=== PATIENT | male | born 1935 | race Caucasian/White ===

== ENCOUNTER 2019-02-27 22:31 | Emergency (ER) | payer OTHER ==
[2019-02-27 22:39] VITALS: BP 143/60; PULSE 70; TEMP 99.2; BMI 24.3
[2019-02-27] MEDS ORDERED: SODIUM CHLORIDE 1,000 ML IV ONE (22:43)
[2019-02-27 23:01] LABS: BASO % 0.1 % (0-2.0); HEMOGLOBIN 13.4 GM/dl (11.7-16.9)
[2019-02-27 23:04] LABS: EOS % 0.1 % (0-4.5); LYMPH % 5.9 % (8-40); MCH 31.9 pg (25.7-33.7); MCHC 33.5 g/dl (32.0-35.9); MEAN PLT VOLUME 7.9 fl (7.5-11.1); MONO % 7.6 % (3.8-10.2); NEUT % 86.3 % (42.8-82.8); PLATELET COUNT 181 K/MM3 (134-434); RBC 4.21 M/mm3 (4.00-5.60); RDW 12.4 % (11.9-15.9); WHITE BLOOD COUNT 9.3 K/mm3 (4.0-10.8)
[2019-02-27 23:19] LABS: ALBUMIN 3.3 g/dl (3.4-5.0); BILIRUBIN,TOTAL 0.8 mg/dl (0.2-1); CALCIUM 8.5 mg/dl (8.5-10); TOT PROT 6.1 g/dl (6.4-8.2)
--- NOTE | 2019-02-27 23:22 | PDOC ---
Documentation entered by Jeremiah Scales SCRIBE, acting as scribe for Salvador Hess MD. Salvador Hess MD: This documentation has been prepared by the Yordy bueno Andrys, SCRIBE, under my direction and personally reviewed by me in its entirety. I confirm that the documentation accurately reflects all work, treatment, procedures, and medical decision making performed by me. History of Present Illness - General Chief Complaint: Weakness Stated Complaint: WEAKNESS X 2 DAYS Time Seen by Provider: 02/27/19 22:36 History Source: Patient, Other (daughter) Exam Limitations: No Limitations - History of Present Illness Initial Comments: 02/27/19 22:43 The patient is a 83 year old male who presents to the ED with complaints of generalized weakness. As per daughter, the patient reports generalized weakness and a white colored tongue since earlier today. Patient states he is not drinking enough water throughout the day. Denies fever or chills. Denies nausea, vomiting, or diarrhea. Denies cough or congesiton. PAST MEDICAL HISTORY: no significant history PAST SURGICAL HISTORY: no significant history FAMILY HISTORY: no pertinent history SOCIAL HISTORY: Pt lives with family and is employed. MEDICATIONS: reviewed ALLERGIES: As per nursing notes General: + generalized weakness. No fevers or chills, no weight loss HEENT: + white colored tongue. No change in vision. No sore throat,. No ear pain Cardiovascular: No chest pain or shortness of breath Respiratory:No cough, or wheezing. Gastrointestinal: no nausea, vomiting, diarrhea or constipation, No rectal bleeding Genitourinary: No dysuria, hematuria, or frequency Musculoskeletal: No joint or muscle pain or swelling Neurologic: No headache, vertigo, dizziness or loss of consciousness Psychiatric: nor depression Skin: No rashes or easy bruising Endocrine: no increased thirst or abnormal weight change Allergic: no skin or latex allergy All other systems reviewed and normal General: Well-nourished well-developed individual, no acute distress HEENT: Throat: + slightly dry mucosa. Normal, tonsils normal, no erythema or exudate Neck: Supple, no meningeal signs, no lymphadenopathy Eyes::Pupils equal reactive and round, extraocular motion intact Chest: Nontender to palpation Cardiac: S1-S2 normal, regular rate and rhythm, no murmurs rubs or gallops Respiratory: Lungs clear to auscultation bilateral Abdomen: Soft, nondistended, normal bowel sounds, nontender to palpation diffusely Extremities: Warm, dry, no cyanosis, clubbing, or edema Skin: No rashes Neuro: Alert and oriented x3, nonfocal exam, grossly intact, normal gait Psych: Normal mood and affect 02/27/19 23:18 Assessment and plan: This is an 83-year-old male who is brought in by his daughter for evaluation. Patient does appear to be mildly dehydrated. The daughter brought her father in because she went to visit him and he was in bed and she thought his tongue looked dry so she brought him in for evaluation. Patient said he hasn't had much to drink today and daughter said the house with hot. Patient doesn't appear to be mildly dehydrated. We will initiate basic workup including EKG CBC and comp. Sinus bradycardia at a rate of [address]-T wave changes. There was no old EKG to compare Patient had a normal exam Patient's CBC was normal and chemistries were unremarkable with the exception of a slightly low sodium of 132 and a glucose of 166. Patient daughter was told that he needs to increase his fluid intake and follow-up with his primary care doctor regarding the sugars. Patient given 500 mL bolus and discharged home with daughter. 02/27/19 23:36 Past History - Past Medical History Allergies/Adverse Reactions: Allergies Allergy/AdvReac Type Severity Reaction Status Date / Time No Known Allergies Allergy Verified 02/27/19 22:33 Home Medications: Ambulatory Orders Amlodipine Besylate [Norvasc -] 5 mg PO DAILY 02/27/19 Doxazosin Mesylate 2 mg PO DAILY 02/27/19 COPD: No Disorders: Yes (ENLARGED PROSTATE) HTN: Yes - Suicide/Smoking/Psychosocial Hx Smoking History: Never smoked Have you smoked in the past 12 months: No Information on smoking cessation initiated: No Hx Alcohol Use: No Drug/Substance Use Hx: No *Physical Exam - Vital Signs Last Vital Signs Temp Pulse Resp BP Pulse Ox 99.2 F 70 18 143/60 95 02/27/19 22:34 02/27/19 22:34 02/27/19 22:34 02/27/19 22:34 02/27/19 22:34 ED Treatment Course - LABORATORY CBC & Chemistry Diagram: 02/27/19 22:25 02/27/19 22:25 - ADDITIONAL ORDERS Additional order review: 02/27/19 22:25 RBC 4.21 MCV 95.0 MCHC 33.5 RDW 12.4 MPV 7.9 Neutrophils % 86.3 H Lymphocytes % 5.9 L Monocytes % 7.6 Eosinophils % 0.1 Basophils % 0.1 *DC/Admit/Observation/Transfer Diagnosis at time of Disposition: Mild dehydration - Discharge Dispostion Disposition: HOME Condition at time of disposition: Stable Decision to Admit order: No - Referrals - Patient Instructions Additional Instructions: It is important that you drink at least 4-6 glasses of water a day. Your blood sugar was mildly elevated sodium is important that you follow that up with your primary care physician as a elevated blood sugar will also make you become more dehydrated and feel tired Return to the emergency department immediately with ANY new, persistent or worsening symptoms. Continue any medications as previously prescribed by your physician. You should follow up with your primary doctor as soon as possible regarding today's emergency department visit. . Please make sure your doctor reviews the results of your emergency evaluation. Thank you for coming to the Emergency Department today for your care. It was a pleasure to see you today. Please note that your evaluation is INCOMPLETE until you follow-up with your doctor. - Post Discharge Activity
--- NOTE | 2019-02-28 11:53 | EKG ---
Test Reason : Blood Pressure : / mmHG Vent. Rate : 055 BPM Atrial Rate : 055 BPM P-R Int : 176 ms QRS Dur : 094 ms QT Int : 416 ms P-R-T Axes : 062 -26 040 degrees QTc Int : 397 ms SINUS BRADYCARDIA POSSIBLE LEFT ATRIAL ENLARGEMENT BORDERLINE ECG NO PREVIOUS ECGS AVAILABLE Confirmed by DAVID DELA CRUZ, SIDNEY ([id number]) on 02/28/2019 11:53:28 AM Referred By: ARTEMIO FALCON Confirmed By:SIDNEY HERNANDEZ MD
== END 2019-02-28 | disposition home or self-care (01) ==
LOC: FER 22:31
PROC: 3E0337Z Introduction of Electrolytic and Water Balance Substance into Peripheral Vein, Percutaneous Approach (ICD-10-PCS; principal; 2019-02-27)
DX: E86.0 Dehydration (principal); I10 Essential (primary) hypertension; N40.0 Benign prostatic hyperplasia without lower urinary tract symptoms
CPT/HCPCS: 36415; 80053; 85025; 93005; 99282-25; J7030

== ENCOUNTER 2019-03-17 21:35 | Inpatient (IN) | payer OTHER ==
[2019-03-17] MEDS ORDERED: SODIUM CHLORIDE 1,000 ML IV ONE (22:04)
[2019-03-17] MEDS ORDERED: ONDANSETRON 4 MG/2 ML VIAL IVPB ONE (22:04)
[2019-03-17] MEDS ORDERED: ONDANSETRON 4 MG/2 ML VIAL ONE (22:11)
[2019-03-17 22:30] LABS: HEMATOCRIT 37.9 % (35.4-49); MCH 32.1 pg (25.7-33.7); MCHC 34.4 g/dl (32.0-35.9); MEAN CELL VOLUME 93.3 fl (80-96); MEAN PLT VOLUME 7.2 fl (7.5-11.1); PLATELET COUNT 239 K/MM3 (134-434); RBC 4.06 M/mm3 (4.00-5.60); RDW 12.3 % (11.9-15.9); WHITE BLOOD COUNT 12.6 K/mm3 (4.0-10.8)
[2019-03-17] MEDS ORDERED: FAMOTIDINE 20 MG/50 ML IVPB 20 MG in PREMIX 50 IVPB ONE (22:35)
[2019-03-17] MEDS ORDERED: MAG HYDROX/AL HYDROX/SIMETH -MYLANTA- ORAL SUSPENSION PO ONE (22:35)
--- NOTE | 2019-03-17 22:37 | PDOC ---
Documentation entered by Van Gallegos SCRIBE, acting as scribe for Cyril Bazan MD. Cyril Bazan MD: This documentation has been prepared by the Rosy bueno Nirvannie, SCRIBE, under my direction and personally reviewed by me in its entirety. I confirm that the documentation accurately reflects all work, treatment, procedures, and medical decision making performed by me. History of Present Illness - General Chief Complaint: Nausea/Vomiting Stated Complaint: NAUSEA, VOMITING, DIARRHEA Time Seen by Provider: 03/17/19 21:39 History Source: Family Exam Limitations: No Limitations - History of Present Illness Initial Comments: 03/17/19 22:03 The patient is a 83 year old male, with a significant past medical history of HTN, BPH, dementia, and recent discharge from [facility] 03/14 for 1 week admission pneumonia, who presents to the emergency department with, 1 day of nausea with NBNB emesis (approx 3 episodes), and NB diarrhea (>20 episodes). As per son at bedside, patient was recently discharged from [facility] on after a week long admission for pneumonia that was treated with an unknown IV antibiotics. Son notes he was discharged on Prednisone but, secondary to mild dementia he was unable to taper the steroids correctly (doubled dosage one day and missed one dose, last dosage 03/14). Son notes he is unsure if the patient washes his hands correctly after using the bathroom and notes being tested for C. diff just prior to his discharge with negative results. Son denies any abnormal food intake. While in the ED, patient's only complaint is that he is "sick and cold" but, denies any nausea, vomiting, or diarrhea. Patient denies any headache or dizziness. Patient denies any chest pain or shortness of breath. Allergies: NKDA Primary Care Physician: Dr. Chavez [facility] Past History - Past Medical History Allergies/Adverse Reactions: Allergies Allergy/AdvReac Type Severity Reaction Status Date / Time No Known Allergies Allergy Verified 03/17/19 21:39 Home Medications: Ambulatory Orders Amlodipine Besylate [Norvasc -] 5 mg PO DAILY 02/27/19 Doxazosin Mesylate 2 mg PO DAILY 02/27/19 Famotidine 20 mg PO DAILY 03/17/19 COPD: No Disorders: Yes (ENLARGED PROSTATE) HTN: Yes - Suicide/Smoking/Psychosocial Hx Smoking History: Never smoked Have you smoked in the past 12 months: No Information on smoking cessation initiated: No Hx Alcohol Use: No Drug/Substance Use Hx: No Review of Systems - Review of Systems Able to Perform ROS?: Yes Comments:: 03/17/19 22:03 CONSTITUTIONAL: +Generalized Weakness, Malaise, No reported: Fever, Chills, Diaphoresis, Loss of Appetite HEENT: No reported: Rhinorrhea, Nasal Congestion, Throat Pain, Throat Swelling, Difficulty Swallowing, Mouth Swelling, Ear Pain, Eye Pain, Visual Changes CARDIOVASCULAR: No reported: Chest Pain, Syncope, Palpitations, Irregular Heart Rate, Lightheadedness, Peripheral Edema RESPIRATORY: No reported: Cough, Shortness of Breath, SOB with Exertion, Orthopnea, Wheezing , Stridor, Hemoptysis GASTROINTESTINAL: Present: Nausea, Vomiting, Diarrhea No reported: Abdominal pain, Abdominal Distension, Constipation, Melena, Hematochezia GENITOURINARY: No reported: Dysuria, Frequency, Urgency, Hesitancy, Flank Pain, Genital Pain MUSCULOSKELETAL: No reported: Myalgia, Arthralgia, Joint Swelling, Back pain, Neck Pain SKIN: No reported: Rash, Itching, Pallor HEMEATOLOGIC/IMMUNOLOGIC: No reported: Easy Bleeding, Easy Bruising, Lymphadenopathy, Frequent infections ENDOCRINE: No reported: Unexplained Weight Gain, Unexplained Weight Loss, Heat Intolerance , Cold Intolerance NEUROLOGIC: No reported: Headache, Focal Weakness, Paresthesias, Vertigo, Lightheadedness, Unsteady Gait, Seizure, Mental Status Changes, Incontinence PSYCHIATRIC: No reported: Anxiety, Depression *Physical Exam - Vital Signs Last Vital Signs Temp Pulse Resp BP Pulse Ox 98.2 F 60 18 152/68 97 03/17/19 21:41 03/17/19 21:41 03/17/19 21:41 03/17/19 21:41 03/17/19 21:41 - Physical Exam Comments: 03/17/19 22:27 GENERAL: The patient is awake, alert, and oriented x 2, Nontoxic - in no acute distress. HEAD: Normocephalic, atraumatic. EYES: extraocular movements intact, sclera anicteric, conjunctiva clear. ENT: Normal voice, dry mucous membranes. NECK: Normal range of motion, supple LUNGS: Breath sounds equal, clear to auscultation bilaterally. No wheezes, no rhonchi, no rales. HEART: Regular rate and rhythm, normal S1 and S2 without murmur, rub or gallop. ABDOMEN: Soft, nontender, No guarding, no rebound. No CVA tenderness EXTREMITIES: Normal range of motion, no edema. NEUROLOGICAL: No facial assymetry, Normal speech, movinga ll 4 extremities spontaneously and symmetrically PSYCH: Normal mood, normal affect. SKIN: Warm, Dry, normal turgor, Heart Score/ECG Review - ECG Impressions Comment:: 03/18/19 00:42 Twelve-lead EKG was performed and reviewed by me. There is normal sinus rhythm rate of 57 The intervals are normal. There is normal R wave progression There are no ST or T wave abnormalities. ED Treatment Course - LABORATORY CBC & Chemistry Diagram: 03/17/19 22:15 03/17/19 22:15 - Medications Given in the ED: ED Medications Discontinued Medications Generic Name Dose Route Start Last Admin Trade Name Freq PRN Reason Stop Dose Admin Ondansetron HCl 4 mg 03/17/19 22:04 03/17/19 22:20 Zofran Injection IVPB 03/17/19 22:05 4 mg ONCE ONE Administration Medical Decision Making - Medical Decision Making 03/17/19 22:34 consider acute gastroenteritis vs cdiff though no fever/abd pain will ck basic labs, lytes, if +fever, abd pain or leukocytosis will obtain cdiff will give fludis, zofran, pepcid/maalxo 03/17/19 22:45 pts labs reveiwed smal leukocytoisis noted pt noted hyponatremic - possibly due to dehydration from diarrhea will repeate anticipate admissionfor further management 03/17/19 23:42 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 Steele Case discussed in detail with admitting physician including history, physical exam and ancillary studies. Admitting physician has assumed care for the patient, will follow all pending diagnostics and will complete the evaluation and treatment. *DC/Admit/Observation/Transfer Diagnosis at time of Disposition: Hyponatremia Diarrhea Qualifiers: Diarrhea type: unspecified type Qualified Code(s): R19.7 - Diarrhea, unspecified - Discharge Dispostion Condition at time of disposition: Stable Decision to Admit order: Yes - Referrals - Patient Instructions - Post Discharge Activity
[2019-03-17 22:39] LABS: BILIRUBIN,TOTAL 1.3 mg/dl (0.2-1); CALCIUM 7.6 mg/dl (8.5-10); CREATININE 0.6 mg/dl (0.55-1.3); MAGNESIUM 1.7 mg/dL (1.8-2.4); POTASSIUM 4.1 mmol/L (3.5-5.1); TOT PROT 5.5 g/dl (6.4-8.2)
[2019-03-17] MEDS ORDERED: MAG HYDROX/AL HYDROX/SIMETH 30 ML UNIT-DOSE CUP ONE (22:39)
[2019-03-17] MEDS ORDERED: FAMOTIDINE 20 MG/50 ML IVPB 20 MG/50 ML MG IVPB ONE (22:39)
[2019-03-17 22:59] LABS: PLATELET ESTIMATE ADEQUATE
[2019-03-17] MEDS ORDERED: SODIUM CHLORIDE 1,000 ML IV SCH (23:45)
[2019-03-17] MEDS ORDERED: MAGNESIUM SULF 50% (8.12 MEQ/2 ML-1 GM VIAL) IVPB ONE (23:56)
[2019-03-18] MEDS ORDERED: MAGNESIUM SULF 50% (8.12 MEQ/2 ML-1 GM VIAL) ONE (00:46)
[2019-03-18 03:00] VITALS: BMI 23.4
[2019-03-18] MEDS: HEPARIN NA (PORCINE) 5,000 UNITS/ML 1ML VIAL SQ SCH ×3 (06:12→21:08)
--- NOTE | 2019-03-18 06:32 | HP ---
CHIEF COMPLAINT: Vomiting and diarrhea PCP: Regine Ann HISTORY OF PRESENT ILLNESS: The patient is a 83 year-old male with a PMH significant for HTN, BPH, and dementia. Patient was seen in [facility] on 02/27/19 for dehydration. He was seen in [facility] ED on 03/05/19 again for dehydration. He was admitted to [facility] on 03/07/19 for pneumonia, treated with IV antibiotics, discharged on 03/14/19. Patient presents today to the [facility] for evaluation of 1 day of nausea, vomiting, and diarrhea. Per daughter, over past 24 hours patient became profoundly weak, had to be held up in order to walk. She estimates 30-40 trips to the bathroom to pass watery stool. Son and daughter express concern for patient not washing his hands after going to the bathroom, and for sometimes eating spoiled food from his refrigerator. Son states patient was tested for c.diff just prior to his discharge from [facility] and it was negative. No report of fever, sweats, chills. ER course was notable for: (1) Na 119 Recent Travel: No PAST MEDICAL HISTORY: Hypertension BPH Dementia PAST SURGICAL HISTORY: Hernia repair x 17 years Social History: lives alone, still drives Smoking: never Alcohol: no Drugs: no Family History: father 88 emphysema; mother 36 in childbirth; 8 siblings, 1 of old age, rest a&w Allergies No Known Allergies Allergy (Verified 03/17/19 21:39) HOME MEDICATIONS: Home Medications Medication Instructions Recorded Amlodipine Besylate [Norvasc -] 5 mg PO DAILY 02/27/19 Doxazosin Mesylate 2 mg PO DAILY 02/27/19 Famotidine 20 mg PO DAILY 03/17/19 REVIEW OF SYSTEMS CONSTITUTIONAL: +weakness Absent: fever, chills, diaphoresis, malaise, loss of appetite, weight change HEENT: Absent: rhinorrhea, nasal congestion, throat pain, throat swelling, difficulty swallowing, mouth swelling, ear pain, eye pain, visual changes CARDIOVASCULAR: Absent: chest pain, syncope, palpitations, irregular heart rate, lightheadedness , peripheral edema RESPIRATORY: Absent: cough, shortness of breath, dyspnea with exertion, orthopnea, wheezing, stridor, hemoptysis GASTROINTESTINAL: +vomiting, diarrhea Absent: abdominal pain, abdominal distension, nausea, vomiting, diarrhea, constipation, melena, hematochezia GENITOURINARY: Absent: dysuria, frequency, urgency, hesitancy, hematuria, flank pain, genital pain MUSCULOSKELETAL: Absent: myalgia, arthralgia, joint swelling, back pain, neck pain SKIN: Absent: rash, itching, pallor HEMATOLOGIC/IMMUNOLOGIC: Absent: easy bleeding, easy bruising, lymphadenopathy, frequent infections ENDOCRINE: Absent: unexplained weight gain, unexplained weight loss, heat intolerance, cold intolerance NEUROLOGIC: Absent: headache, focal weakness or paresthesias, dizziness, unsteady gait, seizure, mental status changes, bladder or bowel incontinence PSYCHIATRIC: Absent: anxiety, depression, suicidal or homicidal ideation, hallucinations. PHYSICAL EXAMINATION Vital Signs - 24 hr 03/17/19 03/17/19 03/18/19 21:41 22:57 01:35 Temperature 98.2 F 98.0 F Pulse Rate 60 Pulse Rate [ 65 Left] Respiratory 18 18 Rate Blood Pressure 152/68 Blood Pressure 155/58 L [Right Arm] O2 Sat by Pulse 97 98 98 Oximetry (%) 03/18/19 03/18/19 03/18/19 02:00 04:00 05:00 Temperature 97.8 F 98.3 F Pulse Rate 54 L 60 Pulse Rate [ Left] Respiratory 20 20 20 Rate Blood Pressure 133/50 L 142/57 L Blood Pressure [Right Arm] O2 Sat by Pulse 95 96 96 Oximetry (%) GENERAL: Awake, alert. A&O x 2. Confused. HEAD: Normal with no signs of trauma. EYES: Pupils equal, round and reactive to light, extraocular movements intact, sclera anicteric, conjunctiva clear. No lid lag. LUNGS: Breath sounds equal, clear to auscultation bilaterally. No wheezes, and no crackles. No accessory muscle use. HEART: Regular rate and rhythm, normal S1 and S2 ABDOMEN: Soft, nontender, not distended, normoactive bowel sounds MUSCULOSKELETAL: Normal range of motion at all joints. No bony deformities or tenderness. No CVA tenderness. UPPER EXTREMITIES: 2+ pulses, warm, well-perfused. No cyanosis. No clubbing. No peripheral edema. LOWER EXTREMITIES: 2+ pulses, warm, well-perfused. No calf tenderness. No peripheral edema. NEUROLOGICAL: Cranial nerves II-XII intact. Normal speech Laboratory Results - last 24 hr 03/17/19 03/17/19 03/17/19 22:15 22:15 22:50 WBC 12.6 H RBC 4.06 Hgb 13.0 Hct 37.9 MCV 93.3 MCH 32.1 MCHC 34.4 RDW 12.3 Plt Count 239 D MPV 7.2 L Absolute Neuts (auto) 11.2 Neutrophils % Picking Machine Operator Helper Neutrophils % (Manual) 90.0 H Band Neutrophils % 2.0 Lymphocytes % Picking Machine Operator Helper Lymphocytes % (Manual) 5.0 L Monocytes % Picking Machine Operator Helper Monocytes % (Manual) 2 L Eosinophils % Picking Machine Operator Helper Eosinophils % (Manual) 1.0 Basophils % Picking Machine Operator Helper Platelet Estimate Adequate Sodium 119 L Potassium 4.1 Chloride 85 L Carbon Dioxide 27 Anion Gap 7 L BUN 11.0 Creatinine 0.6 Est GFR (CKD-EPI)AfAm 107.76 Est GFR (CKD-EPI)NonAf 92.98 Random Glucose 144 H Calcium 7.6 L Magnesium 1.7 L Total Bilirubin 1.3 H AST 22 ALT 19 Alkaline Phosphatase 46 Creatine Kinase Troponin I Total Protein 5.5 L Albumin 3.0 L Urine Color Urine Appearance Urine pH Urine Protein Urine Glucose (UA) Urine Ketones Urine Blood Urine Nitrite Urine Bilirubin Urine Urobilinogen Ur Leukocyte Esterase Ur Random Sodium 32 L 03/17/19 03/17/19 03/17/19 22:50 22:50 23:22 WBC RBC Hgb Hct MCV MCH MCHC RDW Plt Count MPV Absolute Neuts (auto) Neutrophils % Neutrophils % (Manual) Band Neutrophils % Lymphocytes % Lymphocytes % (Manual) Monocytes % Monocytes % (Manual) Eosinophils % Eosinophils % (Manual) Basophils % Platelet Estimate Sodium Potassium Chloride Carbon Dioxide Anion Gap BUN Creatinine Est GFR (CKD-EPI)AfAm Est GFR (CKD-EPI)NonAf Random Glucose Calcium Magnesium Total Bilirubin AST ALT Alkaline Phosphatase Creatine Kinase 37 Troponin I < 0.03 Total Protein Albumin Urine Color Yellow Urine Appearance Clear Urine pH 7.5 Urine Protein Negative Urine Glucose (UA) Negative Urine Ketones Negative Urine Blood Negative Urine Nitrite Negative Urine Bilirubin Negative Urine Urobilinogen 0.2 Ur Leukocyte Esterase Negative Ur Random Sodium ASSESSMENT/PLAN 83 year-old male with a PMH significant for HTN, BPH, and dementia. Discharged 4 days ago from [facility] treated for pneumonia. Admitted for hyponatremia. Hyponatremia --Na 119 in ED, given IV fluids, this morning 134 --will give litre of D5 for too rapid correction --per son and daughter, patient is back to baseline mental status today and is ambulating with a steady gait --recheck Na Diarrhea --daughter says 30-40 episodes of diarrhea prior to arrival, but no episodes since 2:30am --possible food ingestion, family states patient often has old food in his refrigerator --c.diff, stool studies sent Pneumonia --seen on CXR and CT --was treated at [facility], afebrile, no leukocytosis, observe off antibiotics Visit type - Emergency Visit Emergency Visit: Yes ED Registration Date: 03/17/19 Care time: The patient presented to the Emergency Department on the above date and was hospitalized for further evaluation of their emergent condition. - New Patient This patient is new to me today: Yes Date on this admission: 03/21/19 - Critical Care Critical Care patient: No
[2019-03-18 08:17] LABS: ALBUMIN 2.7 g/dl (3.4-5.0); BILIRUBIN,TOTAL 0.9 mg/dl (0.2-1); CALCIUM 7.7 mg/dl (8.5-10); CREATININE 0.5 mg/dl (0.55-1.3); MAGNESIUM 2.4 mg/dL (1.8-2.4); PHOSPHOROUS 2.7 mg/dl (2.5-4.9); POTASSIUM 4.5 mmol/L (3.5-5.1); TOT PROT 4.9 g/dl (6.4-8.2)
[2019-03-18 08:35] LABS: BASO % 0.1 % (0-2.0); EOS % 0.5 % (0-4.5); HEMOGLOBIN 12.4 GM/dl (11.7-16.9); LYMPH % 12.6 % (8-40); MCH 32.7 pg (25.7-33.7); MCHC 34.3 g/dl (32.0-35.9); MEAN CELL VOLUME 95.2 fl (80-96); MEAN PLT VOLUME 7.8 fl (7.5-11.1); MONO % 6.4 % (3.8-10.2); NEUT % 80.4 % (42.8-82.8); PLATELET COUNT 217 K/MM3 (134-434); RBC 3.78 M/mm3 (4.00-5.60); RDW 12.9 % (11.9-15.9); WHITE BLOOD COUNT 8.1 K/mm3 (4.0-10.8)
[2019-03-18] MEDS ORDERED: PT OWN MED DRAWER 7, Y5N ONE (10:06)
[2019-03-18] MEDS: FAMOTIDINE 20 MG TABLET PO SCH (10:10)
[2019-03-18] MEDS: DOXAZOSIN MESYLATE 2 MG TABLET (FP) PO SCH (10:10)
[2019-03-18] MEDS: amLODIPine BESYLATE 5 MG TABLET (FP) PO SCH (10:10)
--- NOTE | 2019-03-18 11:46 | EKG ---
Test Reason : Blood Pressure : / mmHG Vent. Rate : 057 BPM Atrial Rate : 057 BPM P-R Int : 188 ms QRS Dur : 092 ms QT Int : 438 ms P-R-T Axes : 046 -24 022 degrees QTc Int : 426 ms POOR DATA QUALITY, INTERPRETATION MAY BE ADVERSELY AFFECTED SINUS BRADYCARDIA POSSIBLE LEFT ATRIAL ENLARGEMENT BORDERLINE ECG WHEN COMPARED WITH ECG OF 27-FEB-2019 22:50, NO SIGNIFICANT CHANGE WAS FOUND Confirmed by NEFTALI DELA CRUZ, JANES ([id number]) on 03/18/2019 11:46:22 AM Referred By: Confirmed By:JANES LINDSAY MD
[2019-03-18] MEDS ORDERED: DEXTROSE 5%-WATER - 1,000 ML IV SCH (13:00)
[2019-03-18 20:28] LABS: CALCIUM 7.4 mg/dl (8.5-10); CREATININE 0.8 mg/dl (0.55-1.3); POTASSIUM 4.2 mmol/L (3.5-5.1)
[2019-03-19] MEDS: HEPARIN NA (PORCINE) 5,000 UNITS/ML 1ML VIAL SQ SCH ×3 (07:08→21:58)
--- NOTE | 2019-03-19 08:31 | PN ---
Progress Note, Physician History of Present Illness: The patient is a 83 year old male, with a significant past medical history of HTN, BPH, dementia, and recent discharge from [facility] 03/14 for 1 week admission pneumonia, who presents to the emergency department with, 1 day of nausea with NBNB emesis (approx 3 episodes), and NB diarrhea (>20 episodes). As per son, patient was recently discharged from [facility] on 03/14 after a week long admission for pneumonia that was treated with an unknown IV antibiotics. Son notes he was discharged on Prednisone but, secondary to mild dementia he was unable to taper the steroids correctly (doubled dosage one day and missed one dose, last dosage 03/14). Son notes he is unsure if the patient washes his hands correctly after using the bathroom and notes being tested for C. diff just prior to his discharge with negative results. Son denies any abnormal food intake.Denies any nausea, vomiting, or diarrhea. Patient denies any headache or dizziness. Patient denies any chest pain or shortness of breath. - Current Medication List Current Medications: Active Medications Amlodipine Besylate (Norvasc -) 5 mg PO DAILY [facility] Last Admin: 03/18/19 10:10 Dose: 5 mg Doxazosin Mesylate (Cardura -) 2 mg PO DAILY [facility] Last Admin: 03/18/19 10:10 Dose: 2 mg Famotidine (Pepcid -) 20 mg PO DAILY [facility] Last Admin: 03/18/19 10:10 Dose: 20 mg Heparin Sodium (Porcine) (Heparin -) 5,000 unit SQ TID [facility] Last Admin: 03/19/19 07:08 Dose: 5,000 unit - Objective Vital Signs: Vital Signs Temperature 98.8 F 03/19/19 05:00 Pulse Rate 58 L 03/19/19 05:00 Respiratory Rate 18 03/19/19 05:00 Blood Pressure 150/58 L 03/19/19 05:00 O2 Sat by Pulse Oximetry (%) 94 L 03/19/19 05:00 Constitutional: Yes: No Distress, Calm, Thin Eyes: Yes: WNL, Conjunctiva Clear, EOM Intact HENT: Yes: WNL, Atraumatic, Normocephalic Neck: Yes: WNL, Supple, Trachea Midline Cardiovascular: Yes: WNL, Regular Rate and Rhythm Respiratory: Yes: WNL, Regular, CTA Bilaterally Gastrointestinal: Yes: Normal Bowel Sounds, Tenderness (to R/L lower quad) ...Rectal Exam: Yes: Deferred Genitourinary: Yes: WNL Breast(s): Yes: WNL Musculoskeletal: Yes: WNL Extremities: Yes: WNL Edema: No Peripheral Pulses WNL: Yes Integumentary: Yes: WNL Neurological: Yes: Alert, Oriented ...Motor Strength: WNL Psychiatric: Yes: WNL, Alert, Oriented Labs: CBC, BMP 03/18/19 06:25 03/18/19 20:00 Problem List - Problems (1) HTN (hypertension) Assessment/Plan: normotemnsive c/w norvasc & cardura Code(s): I10 - ESSENTIAL (PRIMARY) HYPERTENSION (2) BPH (benign prostatic hyperplasia) Assessment/Plan: no home meds Code(s): N40.0 - BENIGN PROSTATIC HYPERPLASIA WITHOUT LOWER URINRY TRACT SYMP (3) Dementia Assessment/Plan: no home meds fequesnt re-orientation encourage family visitation Code(s): F03.90 - UNSPECIFIED DEMENTIA WITHOUT BEHAVIORAL DISTURBANCE (4) Prophylactic measure Assessment/Plan: FEN adequate PO intake, will start IVF if diarrhea returns monitor electrolyes low sodium diet DVT heparin sq Dispo maintain as in patient full code discharge planning Code(s): Z29.9 - ENCOUNTER FOR PROPHYLACTIC MEASURES, UNSPECIFIED (5) Hyponatremia Assessment/Plan: Na 131 urine elctrolyes sent, Elvira 80, Ucr 55. FeNa .89% suggestive of pre-renal will restart IVF if diarrhea returns Fluid restriction of free water 1200cc until Na > 132 Code(s): E87.1 - HYPO-OSMOLALITY AND HYPONATREMIA (6) Mild dehydration Assessment/Plan: hydrated overnight Cr .8 encourage PO intake Code(s): E86.0 - DEHYDRATION (7) Gastroenteritis Assessment/Plan: n/v subsided atriemetics PRN stool cs pending, will follow Code(s): K52.9 - NONINFECTIVE GASTROENTERITIS AND COLITIS, UNSPECIFIED Visit type - Emergency Visit Emergency Visit: Yes ED Registration Date: 03/17/19 Care time: The patient presented to the Emergency Department on the above date and was hospitalized for further evaluation of their emergent condition. - New Patient This patient is new to me today: Yes Date on this admission: 03/19/19 - Critical Care Critical Care patient: No - Discharge Referral Referred to [facility] Med P.C.: No
[2019-03-19] MEDS ORDERED: PT OWN MED DRAWER 7, Y5N ONE (09:01)
[2019-03-19] MEDS: DOXAZOSIN MESYLATE 2 MG TABLET (FP) PO SCH (09:02)
[2019-03-19] MEDS: amLODIPine BESYLATE 5 MG TABLET (FP) PO SCH (09:02)
[2019-03-19] MEDS: FAMOTIDINE 20 MG TABLET PO SCH (09:03)
[2019-03-19] MEDS ORDERED: DOXAZOSIN MESYLATE 2 MG TABLET (FP) PO SCH ×2 (12:34→12:45)
[2019-03-19] MEDS: LACTOBACILLUS ACIDOPHILUS 1 TABLET PO SCH (13:06)
[2019-03-19] MEDS ORDERED: GLYCERIN 1 RECTAL SUPPOSITORY, ADULT PR ONE (14:43)
[2019-03-19] MEDS: ACETAMINOPHEN 325 MG TABLET (FP) PO PRN (15:06)
[2019-03-19] MEDS ORDERED: LACTULOSE 20 GM/30 ML UDC (FOR ORAL USE ONLY) PO ONE (21:39)
[2019-03-20] MEDS: ACETAMINOPHEN 325 MG TABLET (FP) PO PRN (05:18)
[2019-03-20] MEDS: HEPARIN NA (PORCINE) 5,000 UNITS/ML 1ML VIAL SQ SCH ×3 (05:18→21:07)
[2019-03-20 09:26] LABS: BASO % 0.6 % (0-2.0); EOS % 2.4 % (0-4.5); HEMATOCRIT 35.7 % (35.4-49); HEMOGLOBIN 12.1 GM/dl (11.7-16.9); LYMPH % 19.4 % (8-40); MCH 32.5 pg (25.7-33.7); MEAN CELL VOLUME 95.6 fl (80-96); MEAN PLT VOLUME 8.1 fl (7.5-11.1); NEUT % 68.6 % (42.8-82.8); PLATELET COUNT 175 K/MM3 (134-434); RBC 3.73 M/mm3 (4.00-5.60); RDW 12.9 % (11.9-15.9)
[2019-03-20 09:46] LABS: ALBUMIN 2.8 g/dl (3.4-5.0); BILIRUBIN,TOTAL 0.6 mg/dl (0.2-1); CALCIUM 7.9 mg/dl (8.5-10); CREATININE 0.7 mg/dl (0.55-1.3); MAGNESIUM 2.1 mg/dL (1.8-2.4); POTASSIUM 3.9 mmol/L (3.5-5.1); TOT PROT 5.1 g/dl (6.4-8.2)
[2019-03-20] MEDS ORDERED: PT OWN MED DRAWER 7, Y5N ONE (10:24)
[2019-03-20] MEDS: LACTOBACILLUS ACIDOPHILUS 1 TABLET PO SCH (10:36)
[2019-03-20] MEDS: FAMOTIDINE 20 MG TABLET PO SCH (10:37)
[2019-03-20] MEDS: amLODIPine BESYLATE 5 MG TABLET (FP) PO SCH (10:37)
[2019-03-20] MEDS ORDERED: VANCOMYCIN 1 GM in D5W (PRE-DOCKED) 1,000 MG/250 ML IVPB ONE (10:50)
[2019-03-20] MEDS ORDERED: CEFTAZIDIME/AVIBACTAM 2.5 GM in DEXTROSE 5%-WATER - 250 ML IVPB ONE (10:53)
--- NOTE | 2019-03-20 11:01 | PN ---
Progress Note, Physician Chief Complaint: No complaints offered overnight History of Present Illness: The patient is a 83 year old male, with a significant past medical history of HTN, BPH, dementia, and recent discharge from [facility] 03/14 for 1 week admission pneumonia, who presents to the emergency department with, 1 day of nausea with NBNB emesis (approx 3 episodes), and NB diarrhea (>20 episodes). As per son, patient was recently discharged from [facility] on 03/14 after a week long admission for pneumonia that was treated with an unknown IV antibiotics. Son notes he was discharged on Prednisone but, secondary to mild dementia he was unable to taper the steroids correctly (doubled dosage one day and missed one dose, last dosage 03/14). Son notes he is unsure if the patient washes his hands correctly after using the bathroom and notes being tested for C. diff just prior to his discharge with negative results. Son denies any abnormal food intake.Denies any nausea, vomiting, or diarrhea. Patient denies any headache or dizziness. Patient denies any chest pain or shortness of breath. - Current Medication List Current Medications: Active Medications Acetaminophen (Tylenol -) 650 mg PO Q6H PRN PRN Reason: Fever Or Pain Last Admin: 03/20/19 05:18 Dose: 650 mg Amlodipine Besylate (Norvasc -) 5 mg PO DAILY [facility] Last Admin: 03/20/19 10:37 Dose: 5 mg Doxazosin Mesylate (Cardura -) 4 mg PO DAILY [facility] Last Admin: 03/20/19 10:37 Dose: 4 mg Famotidine (Pepcid -) 20 mg PO DAILY [facility] Last Admin: 03/20/19 10:37 Dose: 20 mg Heparin Sodium (Porcine) (Heparin -) 5,000 unit SQ TID [facility] Last Admin: 03/20/19 05:18 Dose: 5,000 unit Ceftazidime/Avibactam 2.5 gm/ (Dextrose) 250 mls @ 125 mls/hr IVPB ONCE ONE; Protocol Stop: 03/20/19 12:52 Lactobacillus Acidophilus (Bacid -) 1 tab PO DAILY [facility] Last Admin: 03/20/19 10:36 Dose: 1 tab Vancomycin HCl (Vancomycin (Pre-Docked)) 1,000 mg IVPB ONCE ONE; Protocol Stop: 03/20/19 10:51 - Objective Vital Signs: Vital Signs Temperature 98.4 F 03/20/19 04:00 Pulse Rate 60 03/20/19 04:00 Respiratory Rate 16 03/20/19 08:41 Blood Pressure 148/52 L 03/20/19 04:00 O2 Sat by Pulse Oximetry (%) 96 03/20/19 08:41 Constitutional: Yes: Well Nourished, No Distress, Calm, Thin Eyes: Yes: WNL, Conjunctiva Clear, EOM Intact HENT: Yes: WNL, Atraumatic, Normocephalic Neck: Yes: WNL, Supple, Trachea Midline Cardiovascular: Yes: WNL, Regular Rate and Rhythm Respiratory: Yes: WNL, Regular, CTA Bilaterally, Diminished (at bases) Gastrointestinal: Yes: WNL, Normal Bowel Sounds, Soft ...Rectal Exam: Yes: WNL Genitourinary: Yes: WNL Breast(s): Yes: WNL Musculoskeletal: Yes: WNL Extremities: Yes: WNL Edema: No Peripheral Pulses WNL: Yes Integumentary: Yes: WNL Neurological: Yes: WNL, Alert, Oriented ...Motor Strength: WNL Psychiatric: Yes: WNL, Alert, Oriented Labs: CBC, BMP 03/20/19 06:30 03/20/19 06:30 - ....Imaging Cat Scan: Report Reviewed (Chest CT :Consolidation/atelectasis in left lower lobe, anterolaterally suspicious for pns) Problem List - Problems (1) HTN (hypertension) Assessment/Plan: normotemnsive c/w norvasc & cardura Code(s): I10 - ESSENTIAL (PRIMARY) HYPERTENSION (2) BPH (benign prostatic hyperplasia) Assessment/Plan: c/w doxzosin Code(s): N40.0 - BENIGN PROSTATIC HYPERPLASIA WITHOUT LOWER URINRY TRACT SYMP (3) Dementia Assessment/Plan: no home meds frequent re-orientation encourage family visitation Code(s): F03.90 - UNSPECIFIED DEMENTIA WITHOUT BEHAVIORAL DISTURBANCE (4) Prophylactic measure Assessment/Plan: FEN adequate PO intake monitor electrolyes low sodium diet DVT heparin sq Dispo maintain as in patient full code discharge planning Code(s): Z29.9 - ENCOUNTER FOR PROPHYLACTIC MEASURES, UNSPECIFIED (5) Hyponatremia Assessment/Plan: Na 135 Elvira 80, Ucr 55. FeNa .89% suggestive of pre-renal maintain Fluid restriction of free water, liberalize to 1500cc/day Code(s): E87.1 - HYPO-OSMOLALITY AND HYPONATREMIA (6) Mild dehydration Assessment/Plan: hydrated on admission Cr .7 encourage PO intake Code(s): E86.0 - DEHYDRATION (7) Gastroenteritis Assessment/Plan: n/v subsided antiemetics PRN stool cx negative Code(s): K52.9 - NONINFECTIVE GASTROENTERITIS AND COLITIS, UNSPECIFIED (8) Pneumonia Assessment/Plan: afebrile, no leukocytosis, lung exam WNL CT Chest Consolidation/atelectasis in left lower lobe, anterolaterally suspicious for pna ID consultation requested for treatment or questionable pna Code(s): J18.9 - PNEUMONIA, UNSPECIFIED ORGANISM Visit type - Emergency Visit Emergency Visit: Yes ED Registration Date: 03/17/19 Care time: The patient presented to the Emergency Department on the above date and was hospitalized for further evaluation of their emergent condition. - New Patient This patient is new to me today: No - Critical Care Critical Care patient: No - Discharge Referral Referred to [facility] Med P.C.: No
--- NOTE | 2019-03-20 11:48 | CON.ID ---
Consult Consult Specialty:: infectious diseases Referred by:: Jaz Reason for Consultation:: pneumonia - History of Present Illness Chief Complaint: abd pain History of Present Illness: 83 year old male, with a significant past medical history of HTN, BPH, dementia , and recent discharge from [facility] 03/14 for 1 week admission pneumonia, who presents to the emergency department with, 1 day of nausea with NBNB emesis ( approx 3 episodes), and NB diarrhea (>20 episodes). As per son at bedside, patient was recently discharged from [facility] on 03/14 after a week long admission for pneumonia that was treated with an unknown IV antibiotics. Son notes he was discharged on Prednisone but, secondary to mild dementia he was unable to taper the steroids correctly (doubled dosage one day and missed one dose, last dosage 03/14). Son notes he is unsure if the patient washes his hands correctly after using the bathroom and notes being tested for C. diff just prior to his discharge with negative results. Son denies any abnormal food intake. While in the ED, patient's only complaint is that he is "sick and cold" but, denies any nausea, vomiting, or diarrhea. Patient denies any headache or dizziness. Patient denies any chest pain or shortness of breath. the above the history on admission,patient has history of dementia and not able to give history properly currently says he is feeling better - History Source History Provided By: Patient, Medical Record Limitations to Obtaining History: Other (dementia) - Alcohol/Substance Use Hx Alcohol Use: No - Smoking History Smoking history: Never smoked Have you smoked in the past 12 months: No Home Medications - Allergies Allergies/Adverse Reactions: Allergies Allergy/AdvReac Type Severity Reaction Status Date / Time No Known Allergies Allergy Verified 03/17/19 21:39 - Home Medications Home Medications: Ambulatory Orders Amlodipine Besylate [Norvasc -] 5 mg PO DAILY 02/27/19 Doxazosin Mesylate 2 mg PO DAILY 02/27/19 Famotidine 20 mg PO DAILY 03/17/19 Review of Systems - Review of Systems Constitutional: reports: No Symptoms Eyes: reports: No Symptoms HENT: reports: No Symptoms Neck: reports: No Symptoms Cardiovascular: reports: No Symptoms Respiratory: reports: No Symptoms Gastrointestinal: reports: Abdominal Pain Musculoskeletal: reports: No Symptoms Integumentary: reports: No Symptoms Neurological: reports: No Symptoms Endocrine: reports: No Symptoms Hematology/Lymphatic: reports: No Symptoms Psychiatric: reports: No Symptoms Physical Exam Vital Signs: Vital Signs Temperature 98.4 F 03/20/19 04:00 Pulse Rate 60 03/20/19 04:00 Respiratory Rate 16 03/20/19 08:41 Blood Pressure 148/52 L 03/20/19 04:00 O2 Sat by Pulse Oximetry (%) 96 03/20/19 08:41 Constitutional: Yes: Well Nourished, No Distress, Calm Cardiovascular: Yes: Regular Rate and Rhythm Respiratory: Yes: Regular, CTA Bilaterally Gastrointestinal: Yes: Normal Bowel Sounds, Soft Musculoskeletal: Yes: WNL Extremities: Yes: WNL Neurological: Yes: Alert, Oriented Psychiatric: Yes: Alert, Oriented Labs: CBC, BMP 03/20/19 06:30 03/20/19 06:30 Imaging - Results Chest X-ray: Report Reviewed, Image Reviewed Cat Scan: Report Reviewed, Image Reviewed Assessment/Plan 83 year-old male with a PMH significant for HTN, BPH, and dementia. Discharged 4 days ago from [facility] treated for pneumonia. Admitted for hyponatremia. Hyponatremia Diarrhea Pneumonia dementia plan i do not think patient has pneumonia at the moment i would not give any abx incentive gabby rest as per the team
[2019-03-20] MEDS ORDERED: HYDROCORTISONE ACETATE 25 MG/SUPP.RECT RC ONE (12:11)
[2019-03-20] MEDS ORDERED: REFRIGERATED ANITBIOTICS ONE (13:13)
[2019-03-20] MEDS ORDERED: POLYETHYLENE GLYCOL 3350 119 GM BTL PO SCH (13:45)
[2019-03-21] MEDS: HEPARIN NA (PORCINE) 5,000 UNITS/ML 1ML VIAL SQ SCH (06:16)
[2019-03-21 07:53] LABS: BASO % 0.5 % (0-2.0); EOS % 2.4 % (0-4.5); HEMATOCRIT 36.8 % (35.4-49); HEMOGLOBIN 12.3 GM/dl (11.7-16.9); LYMPH % 19.5 % (8-40); MCHC 33.5 g/dl (32.0-35.9); MEAN CELL VOLUME 95.5 fl (80-96); MONO % 8.6 % (3.8-10.2); PLATELET COUNT 188 K/MM3 (134-434); RBC 3.86 M/mm3 (4.00-5.60); RDW 13.4 % (11.9-15.9); WHITE BLOOD COUNT 5.7 K/mm3 (4.0-10.8)
[2019-03-21 08:03] LABS: ALBUMIN 2.9 g/dl (3.4-5.0); BILIRUBIN,TOTAL 0.6 mg/dl (0.2-1); CALCIUM 8.4 mg/dl (8.5-10); CREATININE 0.6 mg/dl (0.55-1.3); MAGNESIUM 2.1 mg/dL (1.8-2.4); POTASSIUM 3.9 mmol/L (3.5-5.1); TOT PROT 5.3 g/dl (6.4-8.2)
[2019-03-21] MEDS: LACTOBACILLUS ACIDOPHILUS 1 TABLET PO SCH (09:56)
[2019-03-21] MEDS: FAMOTIDINE 20 MG TABLET PO SCH (09:57)
[2019-03-21] MEDS: amLODIPine BESYLATE 5 MG TABLET (FP) PO SCH (09:57)
[2019-03-21] MEDS ORDERED: DOXAZOSIN MESYLATE 4 MG TABLET PO SCH (10:00)
--- NOTE | 2019-03-21 10:01 | DS ---
Physical Exam: SUBJECTIVE: Patient seen and examined OBJECTIVE: Vital Signs Period Temp Pulse Resp BP Sys/Waldrop Pulse Ox Last 24 Hr 97.9 F-98.4 F 56-64 17-19 130-147/51-69 95-98 PHYSICAL EXAM GENERAL: The patient is awake, alert, and fully oriented, in no acute distress. HEAD: Normal with no signs of trauma. EYES: PERRL, extraocular movements intact, sclera anicteric, conjunctiva clear. ENT: Ears normal, nares patent, oropharynx clear without exudates, moist mucous membranes. NECK: Trachea midline, full range of motion, supple. LUNGS: Breath sounds equal, clear to auscultation bilaterally, no wheezes, no crackles, no accessory muscle use. HEART: Regular rate and rhythm, S1, S2 without murmur, rub or gallop. ABDOMEN: Soft, nontender, nondistended, normoactive bowel sounds, no guarding, no rebound, no hepatosplenomegaly, no masses. EXTREMITIES: 2+ pulses, warm, well-perfused, no edema. NEUROLOGICAL: Cranial nerves II through XII grossly intact. Normal speech, gait not observed. PSYCH: Normal mood, normal affect. SKIN: Warm, dry, normal turgor, no rashes or lesions noted. LABS Laboratory Results - last 24 hr 03/21/19 03/21/19 06:50 06:50 WBC 5.7 RBC 3.86 L Hgb 12.3 Hct 36.8 MCV 95.5 MCH 32.0 MCHC 33.5 RDW 13.4 Plt Count 188 MPV 8.0 Absolute Neuts (auto) 4.0 Neutrophils % 69.0 Lymphocytes % 19.5 Monocytes % 8.6 Eosinophils % 2.4 Basophils % 0.5 Sodium 132 L Potassium 3.9 Chloride 99 Carbon Dioxide 27 Anion Gap 6 L BUN 9.0 Creatinine 0.6 Est GFR (CKD-EPI)AfAm 107.76 Est GFR (CKD-EPI)NonAf 92.98 Random Glucose 112 H Calcium 8.4 L Magnesium 2.1 Total Bilirubin 0.6 AST 18 ALT 16 Alkaline Phosphatase 46 Total Protein 5.3 L Albumin 2.9 L HOSPITAL COURSE: Date of Admission:03/17/19 Date of Discharge: 03/21/19 Pre hospital course The patient is a 83 year-old male with a PMH significant for HTN, BPH, and dementia. Patient was seen in [facility] on 02/27/19 for dehydration. He was seen in [facility] ED on 03/05/19 again for dehydration. He was admitted to [facility] on 03/07/19 for pneumonia, treated with IV antibiotics, discharged on 03/14/19. Patient presents today to the [facility] for evaluation of 1 day of nausea, vomiting, and diarrhea. Per daughter, over past 24 hours patient became profoundly weak, had to be held up in order to walk. She estimates 30-40 trips to the bathroom to pass watery stool. Son and daughter express concern for patient not washing his hands after going to the bathroom, and for sometimes eating spoiled food from his refrigerator. Son states patient was tested for c.diff just prior to his discharge from [facility] and it was negative. No report of fever, sweats, chills. ER course (1) Na 119 Subsequent hospital course 83 year-old male with a PMH significant for HTN, BPH, and dementia. Discharged 4 days ago from [facility] treated for pneumonia. Admitted for hyponatremia. Hyponatremia --Na 119 in ED, given IV fluids, returned to wnl --confusion and weakness resolved, back to baseline functioning Diarrhea --had mild leukocytosis on admission which resolved, afebrile throughout stay --diarrhea quickly subsided after arrival, no further episodes --was observed off antibiotics --c. diff negative; stool culture negative --likely the result of spoiled food ingestion Pneumonia --seen on CXR and CT --was treated at [facility], afebrile, no leukocytosis, observed off antibiotics Minutes to complete discharge: 35 Discharge Summary Reason For Visit: NAUSEA, VOMITING, DIARRHEA Current Active Problems BPH (benign prostatic hyperplasia) (Acute) Dementia (Acute) Diarrhea (Acute) Gastroenteritis (Acute) HTN (hypertension) (Acute) Hyponatremia (Acute) Pneumonia (Acute) Prophylactic measure (Acute) Condition: Improved - Instructions Diet, Activity, Other Instructions: It is important to stay well-hydrated. Drink plenty of fluids every day. You should follow up with your primary care provider, Dr. Montanez, within 48 hours of your discharge. Return to the emergency department for any new or worsening symptoms. Referrals: Maxim Montanez [Non Staff, Medical] - Disposition: HOME - Home Medications Comprehensive Discharge Medication List: Ambulatory Orders Amlodipine Besylate [Norvasc -] 5 mg PO DAILY 02/27/19 Doxazosin Mesylate 2 mg PO DAILY 02/27/19 Famotidine 20 mg PO DAILY 03/17/19 This patient is new to me today: No Emergency Visit: Yes ED Registration Date: 03/17/19 Care time: The patient presented to the Emergency Department on the above date and was hospitalized for further evaluation of their emergent condition. Critical Care patient: No - Discharge Referral Referred to [facility] Med P.C.: No
[2019-03-21 10:40] VITALS: BP 142/53; PULSE 72; TEMP 97.8
--- NOTE | 2019-03-21 11:48 | PN ---
Progress Note, Physician History of Present Illness: stable no new issues - Current Medication List Current Medications: Active Medications Acetaminophen (Tylenol -) 650 mg PO Q6H PRN PRN Reason: Fever Or Pain Last Admin: 03/20/19 05:18 Dose: 650 mg Amlodipine Besylate (Norvasc -) 5 mg PO DAILY [facility] Last Admin: 03/21/19 09:57 Dose: 5 mg Doxazosin Mesylate (Cardura -) 4 mg PO DAILY [facility] Last Admin: 03/21/19 09:56 Dose: 4 mg Famotidine (Pepcid -) 20 mg PO DAILY [facility] Last Admin: 03/21/19 09:57 Dose: 20 mg Heparin Sodium (Porcine) (Heparin -) 5,000 unit SQ TID [facility] Last Admin: 03/21/19 06:16 Dose: 5,000 unit Hydrocortisone Acetate (Anusol Hc Suppository -) 25 mg RC HS [facility] Lactobacillus Acidophilus (Bacid -) 1 tab PO DAILY [facility] Last Admin: 03/21/19 09:56 Dose: 1 tab - Objective Vital Signs: Vital Signs Temperature 97.8 F 03/21/19 08:00 Pulse Rate 72 03/21/19 08:00 Respiratory Rate 18 03/21/19 09:00 Blood Pressure 142/53 L 03/21/19 08:00 O2 Sat by Pulse Oximetry (%) 95 03/21/19 09:00 Constitutional: Yes: No Distress, Calm Cardiovascular: Yes: S1, S2 Respiratory: Yes: Regular, CTA Bilaterally Gastrointestinal: Yes: Normal Bowel Sounds, Soft Musculoskeletal: Yes: WNL Extremities: Yes: WNL Neurological: Yes: Alert, Oriented Psychiatric: Yes: Alert, Oriented Labs: CBC, BMP 03/21/19 06:50 03/21/19 06:50 Assessment/Plan 83 year-old male with a PMH significant for HTN, BPH, and dementia. Discharged 4 days ago from [facility] treated for pneumonia. Admitted for hyponatremia. Hyponatremia Diarrhea Pneumonia dementia plan continue current mgmt rest as per the team stable
[2019-03-21] MEDS ORDERED: HYDROCORTISONE ACETATE 25 MG/SUPP.RECT RC SCH (22:00)
== END 2019-03-21 12:03 | disposition home or self-care (01) | DRG 918 ==
LOC: FER 21:35 → FM/S 23:43 → UNDOADMIN 03-18 00:21
PROVIDERS: ADMIT Internal Medicine; ATTEND Nurse Practitioner Acute Care
DX: T62.91XA Toxic effect of unspecified noxious substance eaten as food, accidental (unintentional), initial encounter (principal); E87.1 Hypo-osmolality and hyponatremia; J98.11 Atelectasis; N40.0 Benign prostatic hyperplasia without lower urinary tract symptoms; F03.90 Unspecified dementia, unspecified severity, without behavioral disturbance, psychotic disturbance, mood disturbance, and anxiety; I10 Essential (primary) hypertension; E86.0 Dehydration; K52.9 Noninfective gastroenteritis and colitis, unspecified; Y92.098 Other place in other non-institutional residence as the place of occurrence of the external cause
CPT/HCPCS: 36415; 71045-TC-FY; 71250-TC; 80048; 80053; 81003; 82550; 82565; 83735; 83935; 84100; 84300; 84484; 85025; 87040; 87045; 87046; 87086; 87186; 87324; 87449; 87899; 93005; 97116-GP; 97161-GP; 99285-25; J1644; J7030

== ENCOUNTER 2021-10-24 19:37 | Emergency (ER) | payer OTHER ==
[2021-10-24 19:46] VITALS: BP 150/70; PULSE 70; TEMP 98; BMI 24.3
[2021-10-24 21:08] LABS: BASO % 0.6 % (0-2.0); EOS % 5.3 % (0-4.5); HEMATOCRIT 41.7 % (35.4-49); HEMOGLOBIN 13.9 GM/dL (11.7-16.9); LYMPH % 25.2 % (8-40); MCHC 33.3 g/dl (32.0-35.9); MEAN CELL VOLUME 93.3 fl (80-96); MEAN PLT VOLUME 7.6 fl (7.5-11.1); MONO % 9.8 % (3.8-10.2); NEUT % 59.1 % (42.8-82.8); PLATELET COUNT 196 10^3/uL (134-434); RBC 4.48 M/mm3 (4.00-5.60); RDW 13.3 % (11.9-15.9)
== END 2021-10-24 21:30 | disposition home or self-care (01) ==
LOC: FER 19:37
DX: B35.6 Tinea cruris (principal)
CPT/HCPCS: 36415; 85025; 99283-25

== ENCOUNTER 2024-03-27 19:38 | Emergency (ER) | payer OTHER ==
[2024-03-27 20:02] VITALS: BP 115/67; PULSE 88; RESP 18; TEMP 97.2; BMI 18.2
[2024-03-27] MEDS ORDERED: DIPHENOXYLATE 2.5/ATROPINE.025 1 COMBO TABLET PO ONE (20:08)
[2024-03-27] MEDS ORDERED: FOLIC ACID 5 MG/1 ML ONE (20:20)
[2024-03-27] MEDS ORDERED: THIAMINE HCL 200 MG/2 ML VIAL ONE (20:22)
[2024-03-27] MEDS ORDERED: MULTIVIT INJ. ADULT COMBO WITH VIT K 1 COMBO 10 ML VIAL IV ONE (20:22)
[2024-03-27] MEDS: FOLIC ACID INJECTION - 1 MG, THIAMINE HCL 100 MG, MULTIVIT INJECTION ADULT 10 ML in SOD... IVPB ONE (20:31)
[2024-03-27 20:56] LABS: HEMATOCRIT 42.3 % (35.4-49); MCH 31.9 pg (25.7-33.7); MEAN CELL VOLUME 96.5 fl (80-96); PLATELET COUNT 210.1 10^3/uL (134-434); RBC 4.38 10^6/uL (4.00-5.60); RDW 13.5 % (11.9-15.9); WHITE BLOOD COUNT 7.2 10^3/uL (4.0-10.8)
[2024-03-27 21:09] LABS: ALBUMIN 3.7 g/dl (3.4-5.0); ALK PHOS 52 U/L (45-117); ANION GAP 11 mmol/L (4-13); BILIRUBIN,TOTAL 0.6 mg/dl (0.2-1); CALCIUM 9.3 mg/dl (8.5-10.1); CHLORIDE 97 mmol/L (98-107); CO2 26 mmol/L (21-32); CREATININE 0.8 mg/dl (0.6-1.3); GLUCOSE,RANDOM 103 mg/dl (74-106); POTASSIUM 3.9 mmol/L (3.5-5.1); SGOT/AST 19 U/L (15-37); SGPT/ALT 8 U/L (7-52); SODIUM 134 mmol/L (136-145); TOT PROT 6.1 g/dl (6.4-8.2)
[2024-03-27 21:52] LABS: PLATELET ESTIMATE ADEQUATE
== END 2024-03-27 22:23 | disposition home or self-care (01) ==
LOC: FER 19:38
PROC: 3E033GC Introduction of Other Therapeutic Substance into Peripheral Vein, Percutaneous Approach (ICD-10-PCS; principal; 2024-03-27)
PROC: 3E033GC Introduction of Other Therapeutic Substance into Peripheral Vein, Percutaneous Approach (ICD-10-PCS; 2024-03-27)
PROC: 3E033GC Introduction of Other Therapeutic Substance into Peripheral Vein, Percutaneous Approach (ICD-10-PCS; 2024-03-27)
PROC: 3E033GC Introduction of Other Therapeutic Substance into Peripheral Vein, Percutaneous Approach (ICD-10-PCS; 2024-03-27)
DX: A08.4 Viral intestinal infection, unspecified (principal); R19.7 Diarrhea, unspecified; Z20.822 Contact with and (suspected) exposure to COVID-19
CPT/HCPCS: 36415; 80053; 85027; 87635; 99284-25

== ENCOUNTER 2024-11-28 15:59 | Inpatient (IN) | payer OTHER ==
[2024-11-28 16:11] VITALS: RESP 18; BMI 17.4
[2024-11-28 17:19] LABS: HEMATOCRIT 40.5 % (40.1-51.0); HEMOGLOBIN 13.3 g/dL (13.7-17.5); MCHC 32.8 g/dl (32.3-36.5); MEAN CELL VOLUME 97.4 fl (79.0-92.2); MEAN PLT VOLUME 9.5 fl (9.4-12.4); PLATELET COUNT 214 x10^3/uL (163-337); RDW 12.3 % (12.6-16.6)
[2024-11-28 17:35] LABS: ALBUMIN 3.5 g/dl (3.4-5.0); ALK PHOS 50 U/L (45-117); ANION GAP 4 mmol/L (4-13); BILIRUBIN,TOTAL 0.4 mg/dl (0.2-1); CALCIUM 8.7 mg/dl (8.5-10.1); CHLORIDE 97 mmol/L (98-107); CO2 32 mmol/L (21-32); CREATININE 0.7 mg/dl (0.6-1.3); GLUCOSE,RANDOM 120 mg/dl (74-106); MAGNESIUM 2.1 mg/dL (1.8-2.4); POTASSIUM 4.6 mmol/L (3.5-5.1); SGOT/AST 12 U/L (15-37); SGPT/ALT 6 U/L (7-52); SODIUM 133 mmol/L (136-145); TOT PROT 5.6 g/dl (6.4-8.2)
[2024-11-28] MEDS ORDERED: cefTRIAXone SODIUM 1 GM VIAL ONE (18:48)
[2024-11-28] MEDS ORDERED: AZITHROMYCIN 500 MG VIAL IVPB ONE (18:55)
[2024-11-28 19:14] LABS: HCV DIAGNOSTIC IN-HOUSE W/RFLX NON-REACTIVE (NONREACTIVE); HIV INTERPRETATION NEGATIVE (NEGATIVE)
[2024-11-28] MEDS: CEFTRIAXONE 1 GM in DEXTROSE 5%-WATER - 100 ML IVPB ONE (19:30)
[2024-11-28] MEDS: AZITHROMYCIN IVPB 500 MG in DEXTROSE 5%-WATER - 250 ML IVPB ONE (19:53)
[2024-11-28] MEDS: levETIRAcetam 500 MG TABLET (FP) PO SCH (21:59)
[2024-11-28 23:33] LABS: EPITHELIAL CELLS 0-5 /hpf
[2024-11-29 08:14] LABS: ABSOLUTE IMMATURE GRANULOCYTES 0.01 x10^3/uL (0.0-0.031); BASOPHILS # 0.03 x10^3/uL (0.01-0.08); EOSINOPHIL % 1.5 % (0.8-7.0); EOSINOPHILS # 0.07 x10^3/uL (0.04-0.54); HEMOGLOBIN 14.5 g/dL (13.7-17.5); MEAN CELL VOLUME 96.5 fl (79.0-92.2); MEAN PLT VOLUME 9.3 fl (9.4-12.4); MONOCYTE # 0.53 x10^3/uL (0.30-0.82); MONOCYTE % 11.4 % (5.3-12.2); PLATELET COUNT 224 x10^3/uL (163-337); RDW 12.1 % (12.6-16.6)
[2024-11-29 09:17] LABS: CALCIUM 8.7 mg/dl (8.5-10.1); CREATININE 0.6 mg/dl (0.6-1.3); POTASSIUM 4.6 mmol/L (3.5-5.1)
[2024-11-29] MEDS: amLODIPine BESYLATE 10 MG TABLET (FP) PO SCH (10:33)
[2024-11-29] MEDS: ESCITALOPRAM OXALATE 10 MG TABLET PO SCH (10:33)
[2024-11-29] MEDS: CEFTRIAXONE 1 GM in DEXTROSE 5%-WATER - 50 ML IVPB SCH (10:33)
[2024-11-29] MEDS: AZITHROMYCIN IVPB 500 MG in DEXTROSE 5%-WATER - 250 ML IVPB SCH (10:34)
[2024-11-30 12:02] VITALS: BP 126/62; PULSE 50; TEMP 98.8
== END 2024-11-30 13:57 | disposition home or self-care (01) | DRG 193 ==
LOC: FER 15:59 → FM/S 18:47 → OBSVTOIN 11-29 08:03
PROVIDERS: ADMIT Hospitalist
DX: J18.9 Pneumonia, unspecified organism (principal); E43 Unspecified severe protein-calorie malnutrition; Z68.1 Body mass index [BMI] 19.9 or less, adult; I10 Essential (primary) hypertension; N40.0 Benign prostatic hyperplasia without lower urinary tract symptoms; F32.A Depression, unspecified; F03.90 Unspecified dementia, unspecified severity, without behavioral disturbance, psychotic disturbance, mood disturbance, and anxiety
CPT/HCPCS: 0241U-QW; 36415; 70450-TC; 71045-TC-FY; 71250-TC; 74176-TC; 80048; 80053; 81003; 81015; 83735; 84484; 85025; 85027; 86803; 87040; 87070; 87077; 87086; 87186; 87205; 87389; 87899; 93005; 97116-GP; 97161-GP; 99285-25; G0378